=== PATIENT | female | born 1975 | race Asian ===

== ENCOUNTER 2023-12-17 15:30 | Emergency (ER) | payer MEDICAID ==
[~2023-12-17] VITALS: Ht 152.4 cm; Wt 72.7 kg
[~2023-12-17 15:30] MED LIST: NOCURR
[2023-12-17 15:51] VITALS: BP 123/80; PULSE 99; RESP 16; TEMP 98.3
[2023-12-17 17:18] LABS: COVID AG,FIA SOURCE NASAL SWAB
[2023-12-17 17:52] LABS: INFLUENZA TYPE A NEGATIVE FOR TYPE A (NEGATIVE); INFLUENZA TYPE B NEGATIVE FOR TYPE B (NEGATIVE)
[2023-12-17 17:56] LABS: SARS-COV2 (COVID) ANTIGEN,FIA Negative (Negative)
== END 2023-12-17 18:54 | disposition left against medical advice (07) ==
LOC: EMS 15:30
DX: R05.9 Cough, unspecified (principal); R51.9 Headache, unspecified; Z20.822 Contact with and (suspected) exposure to COVID-19; Z53.21 Procedure and treatment not carried out due to patient leaving prior to being seen by health care provider
CPT/HCPCS: 87804